=== PATIENT | male | born 1955 | race African-American/Black ===

== ENCOUNTER 2020-09-03 11:41 | Emergency (ER) | payer MEDICARE, MEDICAID ==
[~2020-09-03] VITALS: Ht 177.8 cm; Wt 90.7 kg
[~2020-09-03 11:41] MED LIST: ASPIRIN81 MG ORAL; CATAPRES0.1 MG ORAL; FUROSEMIDE40 MG ORAL; GLIPIZIDE ER5 MG PO; JANUVIA25 MG ORAL; KLONOPIN0.5 MG ORAL; METFORMIN HCL1000 M1 ORAL; METOPROLOL TART50 MG ORAL; NORCO 5-325 TA1 EAC1 ORAL; NOVOLIN 70100 UNIT/1 SUBQ; RISPERDAL2 MG ORAL; SEROQUEL100 MG ORAL; XALATAN2.5 ML BOTH EYES
[2020-09-03] MEDS ORDERED: Acetaminophen 500mg (ES) tab ORAL ONE (12:15)
[2020-09-03 12:53] LABS: BASOPHILS % (AUTO) 0.8 % (0.0-2.0); EOSINOPHILS % (AUTO) 0.1 % (0.0-3.0); HEMATOCRIT 48.4 % (42.0-52.0); HEMOGLOBIN 15.8 G/DL (14.2-18.0); LYMPHOCYTES % (AUTO) 28.9 % (20.0-45.0); MEAN CORPUSCULAR VOLUME 87 FL (80-99); MONOCYTES % (AUTO) 10.8 % (1.0-10.0); NEUTROPHILS % (AUTO) 59.4 % (45.0-75.0); PLATELET COUNT 176 K/UL (150-450); RED BLOOD COUNT 5.58 M/UL (4.70-6.10); RED CELL DISTRIBUTION WIDTH 13.9 % (11.6-14.8)
[2020-09-03 12:55] LABS: ANION GAP 11 mmol/L (5-15); BLOOD UREA NITROGEN 15 mg/dL (7-18); CALCIUM 8.1 MG/DL (8.5-10.1); CARBON DIOXIDE 27 MMOL/L (21-32); CHLORIDE 105 MMOL/L (98-107); CREATININE 1.1 MG/DL (0.55-1.30); POTASSIUM 4.1 MMOL/L (3.5-5.1); SODIUM 143 MMOL/L (136-145)
[2020-09-03 13:09] LABS: ALANINE AMINOTRANSFERASE 153 U/L (12-78); ALBUMIN 2.9 G/DL (3.4-5.0); ALBUMIN/GLOBULIN RATIO 0.5 (1.0-2.7); ALKALINE PHOSPHATASE 87 U/L (46-116); ASPARTATE AMINO TRANSFERASE 174 U/L (15-37); BILIRUBIN,TOTAL 0.6 MG/DL (0.2-1.0); CREATINE KINASE 1226 U/L (26-308); FERRITIN > 2000 NG/ML (8-388); LACTATE DEHYDROGENASE 769 U/L (81-234)
[2020-09-03 13:21] VITALS: BP 153/75
--- NOTE | 2020-09-03 13:26 | NUR ---
ED Nurse Note: pt biba for altered LOC. pt oritented to name, birthday, place, does not know year. pt states hes "just not feeling well". pt placed on ekg monitor tech continuous. pt labs & covid sent to lab.
--- NOTE | 2020-09-03 15:14 | Emergency Room Report ---
History of Present Illness General Chief Complaint: Generalized Weakness Source: Patient Present Illness HPI Patient presents with possibly greater than a week of illness. He is lost his appetite and complains of weakness. He is also lost his sense of smell. He does complain about a nonproductive cough. He denies any sore throat. He has had some nausea vomiting and loose stools. He also complains about dysuria. He has a [employer] sales consultant who sent him in by [employer]. Patient has a history of schizophrenia and diabetes. Allergies: Coded Allergies: No Known Allergies (Unverified , 03/24/20) COVID-19 Screening Contact w/high risk pt: No Experienced COVID-19 symptoms?: Yes COVID-19 Testing performed BRIDGE PAINTER: No Patient History Past Medical History: see triage record, DM, psych hx Social History: Denies: smoking, alcohol use, drug use Social History Narrative Has [employer] sales consultant Reviewed Nursing Documentation: PMH: Agreed; PSxH: Agreed Nursing Documentation-PMH Past Medical History: No History, Except For Hx Cardiac Problems: No Hx Hypertension: Yes Hx Pacemaker: No Hx Asthma: No Hx COPD: No Hx Diabetes: Yes Hx Cancer: No Hx Gastrointestinal Problems: Yes Hx Dialysis: No Hx Neurological Problems: No Hx Cerebrovascular Accident: No Hx Seizures: Yes Review of Systems All Other Systems: negative except mentioned in HPI Physical Exam Vital Signs Date Time Temp Pulse Resp B/P (MAP) Pulse Ox O2 Delivery O2 Flow Rate FiO2 09/03/20 12:02 100.8 117 17 173/86 (115) 100 Room Air 09/03/20 13:21 98 Sp02 EP Interpretation: reviewed, normal General Appearance: alert, GCS 15, non-toxic, other - Slow speaking Head: normocephalic, atraumatic Eyes: bilateral eye normal inspection, bilateral eye PERRL, bilateral eye EOMI ENT: normal pharynx, moist mucus membranes Neck: supple Respiratory: lungs clear, normal breath sounds Cardiovascular #1: regular rate, rhythm Cardiovascular #2: 2+ radial (R) Gastrointestinal: normal inspection, normal bowel sounds, non tender, no mass, non-distended Musculoskeletal: back normal, normal range of motion, gait/station normal Neurologic: alert, oriented x3, grossly normal Psychiatric: mood/affect normal, no suicidal/homicidal ideation, other - Slow speaking Skin: no rash, warm/dry, other - febrile Medical Decision Making Diagnostic Impression: Primary Impression: Febrile illness Additional Impressions: Person under investigation for COVID-19 Schizophrenia Qualified Codes: F20.9 - Schizophrenia, unspecified ER Course Patient presents with 1 week of illness. He has a fever and oxygen saturation is 100%. Differential includes UTI, gastroenteritis, Covid amongst other viral illnesses others. Patient evaluated with EKG, chest x-ray and labs. Patient treated with IV hydration and Tylenol. Consideration of beginning antibiotics if there is a source and depending on lactic acid. Patient placed on panel monitor. EKG sinus tachycardia. Chest x-ray no infiltrates. Labs with increased inflammatory markers. D-dimer is elevated. Suspect Covid based on inflammatory markers although there is no evidence of pneumonia at this time. Patient improved with treatment. Awaiting urinalysis. Discussed with Dr. Obrien 1500 accepts patient. RN started O2 for low O2 saturation. Urinalysis without pyuria however positive for glucose and ketones. No clear identified source of infection requiring antibiotics. Highly suspect Covid. Laboratory Tests Test 09/03/20 12:11 09/03/20 15:01 White Blood Count 5.0 K/UL (4.8-10.8) Red Blood Count 5.58 M/UL (4.70-6.10) Hemoglobin 15.8 G/DL (14.2-18.0) Hematocrit 48.4 % (42.0-52.0) Mean Corpuscular Volume 87 FL (80-99) Mean Corpuscular Hemoglobin 28.4 PG (27.0-31.0) Mean Corpuscular Hemoglobin Concent 32.8 G/DL (32.0-36.0) Red Cell Distribution Width 13.9 % (11.6-14.8) Platelet Count 176 K/UL (150-450) Mean Platelet Volume 9.6 FL (6.5-10.1) Neutrophils (%) (Auto) 59.4 % (45.0-75.0) Lymphocytes (%) (Auto) 28.9 % (20.0-45.0) Monocytes (%) (Auto) 10.8 % (1.0-10.0) H Eosinophils (%) (Auto) 0.1 % (0.0-3.0) Basophils (%) (Auto) 0.8 % (0.0-2.0) Prothrombin Time 10.7 SEC (9.30-11.50) Prothrombin Time INR 1.0 (0.9-1.1) Activated Partial Thromboplast Time 26 SEC (23-33) D-Dimer 1.68 mg/L FEU (0.00-0.49) H Sodium Level 143 MMOL/L (136-145) Potassium Level 4.1 MMOL/L (3.5-5.1) Chloride Level 105 MMOL/L (98-107) Carbon Dioxide Level 27 MMOL/L (21-32) Anion Gap 11 mmol/L (5-15) Blood Urea Nitrogen 15 mg/dL (7-18) Creatinine 1.1 MG/DL (0.55-1.30) Estimated Glomerular Filtration Rate > 60 mL/min (>60) Glucose Level 288 MG/DL (74-106) H Lactic Acid Level 2.00 mmol/L (0.4-2.0) Calcium Level 8.1 MG/DL (8.5-10.1) L Magnesium Level 1.9 MG/DL (1.8-2.4) Ferritin > 2000 NG/ML (8-388) H Total Bilirubin 0.6 MG/DL (0.2-1.0) Aspartate Amino Transferase (AST) 174 U/L (15-37) H Alanine Aminotransferase (ALT) 153 U/L (12-78) H Alkaline Phosphatase 87 U/L (46-116) Lactate Dehydrogenase 769 U/L (81-234) H Total Creatine Kinase 1226 U/L (26-308) H Troponin I 0.000 ng/mL (0.000-0.056) C-Reactive Protein, Quantitative 7.3 mg/dL (0.00-0.90) H Pro-B-Type Natriuretic Peptide 30 pg/mL (0-125) Total Protein 8.7 G/DL (6.4-8.2) H Albumin 2.9 G/DL (3.4-5.0) L Globulin 5.8 g/dL Albumin/Globulin Ratio 0.5 (1.0-2.7) L Lipase 303 U/L (73-393) Urine Color Yellow Urine Appearance Clear Urine pH 6 (4.5-8.0) Urine Specific [place] 1.020 (1.005-1.035) Urine Protein 4+ (NEGATIVE) H Urine Glucose (UA) 4+ (NEGATIVE) H Urine Ketones 3+ (NEGATIVE) H Urine Blood 2+ (NEGATIVE) H Urine Nitrite Negative (NEGATIVE) Urine Bilirubin Negative (NEGATIVE) Urine Urobilinogen 1 MG/DL (0.0-1.0) H Urine Leukocyte Esterase Negative (NEGATIVE) Urine RBC 0-2 /HPF (0 - 0) H Urine WBC 0-2 /HPF (0 - 0) Urine Squamous Epithelial Cells Occasional /LPF Urine Bacteria Few /HPF (NONE) EKG Diagnostic Results Rate: tachycardiac Rhythm: NSR ST Segments: no acute changes Rhythm Strip Diag. Results EP Interpretation: yes Rhythm: no PVC's, no ectopy, other - ST Chest X-Ray Diagnostic Results Chest X-Ray Diagnostic Results : Chest X-Ray Ordered: Yes # of Views/Limited/Complete: 1 View Indication: Other EP Interpretation: Yes Interpretation: no consolidation, no effusion, no pneumothorax Impression: No acute disease Last Vital Signs Date Time Temp Pulse Resp B/P (MAP) Pulse Ox O2 Delivery O2 Flow Rate FiO2 09/03/20 16:25 98.4 92 18 130/80 98 Room Air 09/03/20 15:24 3.0 09/03/20 15:18 98 Status: improved Disposition: SHORT-TERM HOSP Condition: Serious Referrals: Chandana Castro MD (PCP) William Ruiz MD Sep 03, 2020 15:14
--- NOTE | 2020-09-03 15:20 | NUR ---
ED Nurse Note: pt placed on 3L O2 for desat to 90% RA. pt given food/fluids. pt on continuous cardiac/O2 monitor. notified
[2020-09-03 15:24] VITALS: BP 125/68
[2020-09-03 15:24] LABS: APPEARANCE,URINE CLEAR; BILIRUBIN, URINE NEGATIVE (NEGATIVE); GLUCOSE, URINE (UA) 4+ (NEGATIVE); KETONES,URINE 3+ (NEGATIVE); LEUKOCYTE ESTERASE ,URINE NEGATIVE (NEGATIVE); NITRITE,URINE NEGATIVE (NEGATIVE); PH,URINE 6 (4.5-8.0); PROTEIN,URINE 4+ (NEGATIVE); UROBILINOGEN,URINE 1 MG/DL (0.0-1.0)
[2020-09-03 15:27] LABS: COLOR,URINE YELLOW
[2020-09-03 16:25] VITALS: BP 130/80
--- NOTE | 2020-09-04 13:19 | Diagnostic Imaging Report ---
Indication: Shortness of breath Technique: One view of the chest Comparison: none Findings: Lungs and pleural spaces are clear. Heart size is normal. Impression: No acute process
--- NOTE | 2020-09-04 15:00 | Cardiology Report ---
APPROVED REPORT EKG Measurement Heart [id number] <Conclusion> Sinus tachycardia Junctional ST depression, probably normal Borderline ECG
== END 2020-09-03 16:25 | disposition other institution (70) ==
LOC: EMR 12:57
DX: R50.9 Fever, unspecified (principal); F20.9 Schizophrenia, unspecified; Z86.16 Personal history of COVID-19; E11.9 Type 2 diabetes mellitus without complications; I10 Essential (primary) hypertension; G40.909 Epilepsy, unspecified, not intractable, without status epilepticus; Z79.84 Long term (current) use of oral hypoglycemic drugs
CPT/HCPCS: 36415; 71045; 80053; 81003; 82550; 82728; 83605; 83615; 83690; 83735; 83880; 84484; 85025; 85379; 85610; 85730; 86140; 87040; 93005; 96360; 99285; J7030; U0004